=== PATIENT | female | born 1990 | race Caucasian/White ===

== ENCOUNTER 2018-12-06 15:13 | Outpatient (CLI) | payer OTHER ==
--- NOTE | 2018-12-06 15:44 | ULT ---
ULTRASOUND NECK SOFT TISSUES: Date: 12/06/18 HISTORY: Enlarged lymph nodes. FINDINGS/IMPRESSION: Sonographic evaluation of the region of palpable concern in the left lateral neck demonstrates a prob ably solid appearing 5.0 x 2.0 x 3.7 cm mass. This should be further evaluated with a contrast enhanced CT scan of the neck. POS: OFF
== END 2018-12-06 15:14 | disposition home or self-care (01) ==
LOC: BICULT 15:13
PROVIDERS: ATTEND Family Medicine
DX: R59.9 Enlarged lymph nodes, unspecified (principal)
CPT/HCPCS: 76536

== ENCOUNTER 2019-03-07 12:54 | Outpatient (CLI) | payer BC ==
[~2019-03-07 12:54] MED LIST: Iopamidol 370 76% 100 ML VIAL ONE
--- NOTE | 2019-03-07 14:01 | CT ---
CONTRAST ENHANCED CT IMAGES OF SOFT TISSUE NECK: HISTORY: Left-sided neck mass for [address] images of soft tissue neck obtained. FINDINGS: Images demonstrate prominence of the palatine tonsils. There is prominence of the adenoids. There phillip ears to be some heterogeneous enhancement seen in the adenoid tissue possibly representing adenoid hyperplasia and possible mucus retained within it. Correlate with clinical exam. There is a 3.1 x 2.9 x 4.2 cm left neck soft tissue cyst or cystic lesion posterior to the left subma ndibular gland and anterior to the sternocleidomastoid and left carotid bifurcation and anterior to the left internal jugular vein. 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 No other significant abnormality seen. 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 Transcribed Date/Time: 03/07/2019 2:11 PM
== END 2019-03-07 12:55 | disposition home or self-care (01) ==
LOC: SCSCT 12:54
PROVIDERS: ATTEND Specialist
DX: R22.1 Localized swelling, mass and lump, neck (principal)
CPT/HCPCS: 70491; Q9967

== ENCOUNTER 2019-03-14 11:40 | Day surgery (SDC) | payer BC ==
[2019-03-13 15:07] VITALS: BMI 21.9
[2019-03-14 13:04] LABS: BHCG - Serum Negative (NEGATIVE); Pregs Control Background? CLEAR/WHITE (CLR/WHITE); Pregs Control Bar Appear? YES (CONTROL BAR)
[2019-03-14] MEDS ORDERED: Midazolam HCl 2 mg/2 ml Vial ONE (14:39)
[2019-03-14] MEDS ORDERED: Lidocaine 1% w/Epinephrine 1:100K 20 ML VIAL ONE (15:27)
[2019-03-14] MEDS ORDERED: Bacitracin Zinc Ointment 30 gm TUBE ONE (15:27)
[2019-03-14] MEDS ORDERED: Fentanyl 100 MCG/2 ML VIAL ONE ×2 (15:41→17:25)
[2019-03-14] MEDS ORDERED: Glycopyrrolate 0.2 MG/ML 5 ML SYRINGE ONE (16:24)
[2019-03-14] MEDS ORDERED: ePHEDrine 50 MG/ML VIAL ONE (16:24)
[2019-03-14] MEDS ORDERED: Ondansetron PF 4 MG/2 ML Vial ONE (16:24)
[2019-03-14] MEDS ORDERED: Dexamethasone 20 MG/5 ML VIAL ONE (16:24)
[2019-03-14] MEDS ORDERED: Lidocaine 1% PF 5 ML VIAL ONE (16:24)
[2019-03-14] MEDS ORDERED: Ketorolac Tromethamine 30 MG/ML VIAL ONE (16:24)
[2019-03-14] MEDS ORDERED: PROPOFOL 200 MG/20 ML VIAL ONE (16:24)
[2019-03-14] MEDS ORDERED: Rocuronium Bromide 10 MG/ML (10ML VIAL) ONE (16:24)
[2019-03-14] MEDS ORDERED: Ondansetron ODT 4 MG TAB ONE (18:15)
--- NOTE | 2019-03-15 09:27 | OP ---
DATE OF PROCEDURE: 03/14/2019 PREOPERATIVE DIAGNOSIS: Large left branchial cleft cyst. POSTOPERATIVE DIAGNOSIS: Large left branchial cleft cyst. PROCEDURES PERFORMED: 1. Excision of left branchial cleft cyst with facial nerve monitoring. 2. 90 minutes of facial nerve monitoring. PROCEDURE IN DETAIL: After consent was obtained, the patient was identified, brought to the operating room and placed on operating room table in supine position. General endotracheal anesthesia was obtained. The patient was positioned for surgery. The facial nerve monitor was placed and documented to be functioning well. We then identified the natural skin crease, which was infiltrated with 1% lidocaine with 1:100,000 epinephrine. We then made an incision anterior to the sternocleidomastoid muscle. I then dissected subcutaneously until we transected the platysma muscle and encountered the cyst. The cyst was then meticulously dissected from the surrounding tissues with care not identify any of the surrounding structures. Ultimately, the cyst was dissected down to the carotid sheath. The great vessels were identified as was the hypoglossal nerve, spinal accessory nerve, and digastric muscle. We also identified the descending branch of the hypoglossal nerve and the vagus nerve. The tract was followed toward its insertion of the pharynx and then suture ligated. The specimen was then removed intact, sent for histologic evaluation. Hemostasis was obtained. Fibrillar and Surgicel were placed in the deep aspect of the wound. The wound was closed in layers with Monocryl used to reapproximate the fascia and dermis and a 6-0 Prolene for the skin. The patient was awakened, then extubated and taken to recovery room in stable condition prior to discharge home. Job ID: [id number]
== END 2019-03-14 19:38 | disposition home or self-care (01) ==
LOC: SDC 11:40
PROVIDERS: ATTEND Specialist
PROC: 0WB60ZZ Excision of Neck, Open Approach (ICD-10-PCS; principal; 2019-03-14)
DX: Q18.0 Sinus, fistula and cyst of branchial cleft (principal); Z79.2 Long term (current) use of antibiotics; Z88.1 Allergy status to other antibiotic agents
CPT/HCPCS: 36415; 84703; 85014; 88304; J1100; J1885; J2001; J2250; J2405; J2704; J3010; J3490; Q0162